=== PATIENT | female | born 1945 | race Caucasian/White ===

== ENCOUNTER → 2017-03-26 | Outpatient (CLI) | payer MEDICARE, OTHER ==
[2017-03-26 09:00] LABS: BLOOD GAS HCO3 27 mmol/L (22-26); BLOOD GAS PCO2 41 mmHG (38-42); BLOOD GAS PO2 76 mmHG (61-120)
[2017-03-26 09:01] LABS: BLOOD GAS CARBOXYHEMOGLOBIN 1.7 % (0-4); BLOOD GAS METHEMOGLOBIN 1.2 % (0-2); BLOOD GAS O2 HGB SATURATION 93 % (90-100); BLOOD GAS OXYGEN CONTENT 17.4 Vol % (12.0-20.0); BLOOD GAS TOTAL HGB 13.3 G/DL (12.0-16.0); CRITICAL VALUE NO; DRAW SITE RT RADIAL; FIO2 21 %; NUMBER OF ARTERIAL PUNCTURES 1; OXYGEN DEVICE ROOM AIR; STAT NO; TEMP CORR TO 98.6; ULNAR PULSE PRESENT
--- NOTE | 2017-03-27 10:25 | RSPPFT ---
DATE OF PROCEDURE: 03/26/17 COMMENTS: Spirometry shows FVC of 1.7 at 67% of predicted, FEV1 of 0.9 at 52%, FEV1/FVC ratio is decreased. Flow is decreased at FEF 25, FEF 50, FEF 75 and FEF 25-75. There is no significant response after acutely inhaled bronchodilator treatment. Lung volumes show residual volume is increased. TLC is increased. There is a moderate loss in diffusion capacity. Room air arterial blood gases show pH of 7.44, PCO2 of 41, PO2 of 76 and BiCarb of 27. IMPRESSION: 1. Moderately severe obstructive lung disease. 2. No response after bronchodilator treatment. 3. Lung volumes show hyperinflation and air trapping. 4. Moderate loss in diffusion capacity. 5. Blood gases show mild hypoxia on room air.
== END ==
LOC: PHRSP 08:42
PROVIDERS: ATTEND Specialist
DX: J44.9 Chronic obstructive pulmonary disease, unspecified (principal)
CPT/HCPCS: 36600; 82805; 94060; 94726; 94729